=== PATIENT | male | born 1985 | race Caucasian/White ===

== ENCOUNTER 2017-12-16 11:55 | Emergency (ER) | payer SELFPAY ==
[~2017-12-16] VITALS: Ht 172.7 cm; Wt 65.8 kg
[~2017-12-16 11:55] MED LIST: BENZ100C PO; LIDO20SO PO; PRED20TA PO; PSEU120T58 PO; VENTOLIN HFA18 GM INH
[2017-12-16 12:07] VITALS: BP 118/74
[2017-12-16] MEDS ORDERED: PROAIR HFA8.5 GM INH (12:50)
--- NOTE | 2017-12-16 12:51 | PHYS DOC ---
Past Medical History Past Medical History: No Pertinent History Past Surgical History: No Surgical History Additional Information: /2-1ppd Alcohol Use: Occasionally Drug Use: None Adult General Chief Complaint Chief Complaint: Congestion HPI HPI Patient is a 32 year old male who presents to the emergency room with complaints of a productive cough with yellowish brown sputum produced for the last 2 days. He also complains of sinus pressure, nasal congestion, runny nose, and fatigue for the last 3 days. States he's been taking DayQuil and Mucinex haven't really been helping very much. Patient states he is a smoker. He denies any medical history and is not taking any prescription medications. Patient denies any fever, wheezing, shortness of breath, ear pain, sore throat, body aches, headache, nausea, vomiting, diarrhea, or abdominal pain with his symptoms. Review of Systems Review of Systems Constitutional: Denies fever or chills, reports fatigue [] Eyes: Denies change in visual acuity, redness, or eye pain [] HENT: Reports, runny nose, nasal congestion and sinus pressure ; denies sore throat or ear pain Respiratory: Denies wheezing or shortness of breath; reports productive cough with yellow-brown sputum for the last 2 days and painful deep inspiration[] Cardiovascular: Denies chest pain GI: Denies abdominal pain, nausea, vomiting, or diarrhea [] Musculoskeletal: Denies back pain or joint pain [] Integument: Denies rash or skin lesions [] Neurologic: Denies headache, focal weakness or sensory changes [] Allergies Allergies Allergies Coded Allergies Type Severity Reaction Last Updated Verified No Known Drug Allergies 09/09/15 No Physical Exam Physical Exam Constitutional: Well developed, well nourished, no acute distress, non-toxic appearance. [] HENT: Normocephalic, atraumatic, bilateral external ears normal, bilateral TMs normal, cobblestone appearance of posterior pharynx, no tenderness with palpation of maxillary or frontal sinuses, no erythema of posterior pharynx, oropharynx moist, no oral exudates, nose normal. [] Eyes: Normal Neck: Normal range of motion, no tenderness, no lymphadenopathy, supple, no stridor. [] Cardiovascular:Heart rate regular rhythm, no murmur [] Lungs & Thorax: Bilateral breath sounds clear to auscultation [] Skin: Warm, dry, no erythema, no rash. [] Extremities: No cyanosis, Neurologic: Alert and oriented X 3, normal motor function, normal sensory function, no focal deficits noted. [] Psychologic: Affect normal, judgement normal, mood normal. [] Current Patient Data Vital Signs Vital Signs Date Time Temp Pulse Resp B/P (MAP) Pulse Ox O2 Delivery O2 Flow Rate FiO2 12/16/17 12:07 98.3 82 16 118/74 (89) 96 98.3 EKG EKG [] Radiology/Procedures Radiology/Procedures [] Course & Med Decision Making Course & Med Decision Making Pertinent Labs and Imaging studies reviewed. (See chart for details) Patient is a 32-year-old male who presented to the emergency room with complaints of 3 days of sinus pressure and 2 days of a productive cough with yellow-brown sputum produced. Lungs sounds are CTA. Clinically he presents as bronchitis any URI, treated as such. Prescription for albuterol inhaler was written. Patient was encouraged to continue sybw-jag-ocwdtai cold relief medications and Tylenol ibuprofen as needed. Patient verbalized an understanding of home care, medications, follow-up , and return to ED instructions and was in agreement with the plan of care. Staff Physician Addendum: I was working in the ER during the course of this patient's visit. I was available for consultation as needed, but I was not directly involved in the care of this patient. [] Dragon Disclaimer Dragon Disclaimer This electronic medical record was generated, in whole or in part, using a voice recognition dictation system. Departure Departure Impression: Primary Impression: Bronchitis Additional Impression: Upper respiratory infection Disposition: HOME, SELF-CARE Condition: STABLE Referrals: NO PCP (PCP) Patient Instructions: Acute Bronchitis, Rcev-tg-Ojbs, Upper Respiratory Infection, Adult, Bojw-zs-Phay Additional Instructions: Fill prescription(s) and use as directed. Tylenol or ibuprofen prn pain/fever. Increase clear fluids. Avoid triggers such as smoke, fragrance, dust, and pollen. May take OTC cough suppressants as needed. Follow-up with your primary care doctor in the next 1-2 days. Return to the emergency room if symptoms worsen. Scripts Albuterol Sulfate (PROAIR HFA INHALER) 8.5 Gm Hfa.aer.ad 1-2 PUFF INH PRN Q4-6HRS PRN for SHORTNESS OF BREATH, #1 INHALER 0 Refills Prov: VENKAT GARCIA [employer] 12/16/17 Problem Qualifiers Additional Impression: Upper respiratory infection URI type: unspecified URI Qualified Codes: J06.9 - Acute upper respiratory infection, unspecified VENKAT GARC[employer] Dec 16, 2017 12:51 KURT LAU MD Dec 17, 2017 18:57
== END 2017-12-16 12:58 | disposition home or self-care (01) ==
LOC: ER 11:55
DX: J40 Bronchitis, not specified as acute or chronic (principal); F17.200 Nicotine dependence, unspecified, uncomplicated; R53.83 Other fatigue
CPT/HCPCS: 99283

== ENCOUNTER 2018-07-20 08:27 | Emergency (ER) | payer BC ==
[~2018-07-20] VITALS: Ht 172.7 cm; Wt 65.8 kg
[~2018-07-20 08:27] MED LIST changes: +ALBU2.5V8 INH
--- NOTE | 2018-07-20 09:04 | RAD ---
Chest, 2 views, 07/20/2018: HISTORY: Cough, chest pain The heart size is normal. There is a small left basilar opacity abutting the hemidiaphragm suggesting a focus of atelectasis or scarring. This was not evident on the previous study of 09/09/2015. The lungs are otherwise clear. There is no evidence of pleural fluid or pneumothorax. IMPRESSION: Minimal left basilar atelectasis or scarring. Electronically signed by: Ángel Gomez MD (07/20/2018 9:02 AM) [facility]
--- NOTE | 2018-07-20 09:08 | PHYS DOC ---
Past Medical History Past Medical History: No Pertinent History Past Surgical History: No Surgical History Smoking: Cigarettes, 1 Pack Per Day Alcohol Use: Occasionally Drug Use: None Adult General Chief Complaint Chief Complaint: CHEST PAIN [facility] HPI Patient is a 32 year old male who presents with complaining of chest pain and shortness of breath. Patient states he woke up at his usual time at 0755 and had 1 episodes of right sided chest pain as a sharp pain without radiation and rated his pain 8/10. Patient states the pain lasts about 1 minute and was associated with shortness of breath and cough. Patient states he cough for several minutes and had shortness of breath. Patient states the pain was not repeated anymore but he feels shortness of breath and has some cough. Patient complaining of nonproductive cough for couple days and episodes of shortness of breath without fever, dizziness, palpitation, nausea and vomiting. Patient denies history of PE and DVT and recent immobilization. Patient does not have any medical problem or family history of coronary artery disease and smokes one pack a cigarettes a day. Patient was chest pain-free at arrival to ER. Review of Systems Review of Systems Constitutional: Denies fever or chills [] Eyes: Denies change in visual acuity, redness, or eye pain [] HENT: Denies nasal congestion or sore throat [] Respiratory: Reports cough and shortness of breath Cardiovascular: No additional information not addressed in HPI [] GI: Denies abdominal pain, nausea, vomiting, bloody stools or diarrhea [] : Denies dysuria or hematuria [] Musculoskeletal: Denies back pain or joint pain [] Integument: Denies rash or skin lesions [] Neurologic: Denies headache, focal weakness or sensory changes [] Endocrine: Denies polyuria or polydipsia [] All other systems were reviewed and found to be within normal limits, except as documented in this note. Allergies Allergies Allergies Coded Allergies Type Severity Reaction Last Updated Verified No Known Drug Allergies 09/09/15 No Physical Exam Physical Exam Constitutional: Well developed, well nourished, mild distress, non-toxic appearance. [] HENT: Normocephalic, atraumatic, oropharynx moist. [] Eyes: PERRLA, EOMI, conjunctiva normal, no discharge. [] Neck: Normal range of motion, no tenderness, supple, no stridor. [] Cardiovascular:Heart rate regular rhythm, no murmur [] Lungs & Thorax: Bilateral breath sounds clear to auscultation [] Abdomen: Bowel sounds normal, soft, no tenderness, no masses, no pulsatile masses. [] Skin: Warm, dry, no erythema, no rash. [] Back: No tenderness, no CVA tenderness. [] Extremities: No tenderness, no cyanosis, no clubbing, ROM intact, no edema. [] Neurologic: Alert and oriented X 3, normal motor function, normal sensory function, no focal deficits noted. [] Psychologic: Affect anxious, judgement normal, mood normal. [] Current Patient Data Vital Signs Vital Signs Date Time Temp Pulse Resp B/P (MAP) Pulse Ox O2 Delivery O2 Flow Rate FiO2 07/20/18 09:34 68 16 121/70 (87) 97 Room Air 07/20/18 08:42 98.0 98.0 Lab Values Laboratory Tests Test 07/20/18 09:02 White Blood Count 9.7 x10^3/uL (4.0-11.0) Red Blood Count 5.41 x10^6/uL (4.30-5.70) Hemoglobin 16.1 g/dL (13.0-17.5) Hematocrit 47.2 % (39.0-53.0) Mean Corpuscular Volume 87 fL (79-100) Mean Corpuscular Hemoglobin 30 pg (25-35) Mean Corpuscular Hemoglobin Concent 34 g/dL (31-37) Red Cell Distribution Width 14.1 % (11.5-14.5) Platelet Count 186 x10^3/uL (140-400) Neutrophils (%) (Auto) 66 % (31-73) Lymphocytes (%) (Auto) 24 % (24-48) Monocytes (%) (Auto) 8 % (0-9) Eosinophils (%) (Auto) 2 % (0-3) Basophils (%) (Auto) 1 % (0-3) Neutrophils # (Auto) 6.4 x10^3uL (1.8-7.7) Lymphocytes # (Auto) 2.4 x10^3/uL (1.0-4.8) Monocytes # (Auto) 0.8 x10^3/uL (0.0-1.1) Eosinophils # (Auto) 0.2 x10^3/uL (0.0-0.7) Basophils # (Auto) 0.1 x10^3/uL (0.0-0.2) D-Dimer (Melania) < 0.27 ug/mlFEU Sodium Level 142 mmol/L (136-145) Potassium Level 4.2 mmol/L (3.5-5.1) Chloride Level 105 mmol/L (98-107) Carbon Dioxide Level 25 mmol/L (21-32) Anion Gap 12 (6-14) Blood Urea Nitrogen 13 mg/dL (8-26) Creatinine 0.9 mg/dL (0.7-1.3) Estimated GFR (Cockcroft-Gault) 96.6 BUN/Creatinine Ratio 14 (6-20) Glucose Level 104 mg/dL (70-99) H Calcium Level 9.2 mg/dL (8.5-10.1) Magnesium Level 2.1 mg/dL (1.8-2.4) Total Bilirubin 0.3 mg/dL (0.2-1.0) Aspartate Amino Transferase (AST) 19 U/L (15-37) Alanine Aminotransferase (ALT) 45 U/L (16-63) Alkaline Phosphatase 70 U/L (46-116) Creatine Kinase 53 U/L (39-308) Troponin I Quantitative < 0.017 ng/mL (0.000-0.055) Total Protein 6.8 g/dL (6.4-8.2) Albumin 3.8 g/dL (3.4-5.0) Albumin/Globulin Ratio 1.3 (1.0-1.7) Laboratory Tests 07/20/18 09:02 Laboratory Tests 07/20/18 09:02 EKG EKG EKG interpreted by me. EKG at 0826 showed normal sinus rhythm at rate of 73, left kovacs axis, normal SD and QT intervals, no acute ST-T wave abnormalities. Radiology/Procedures Radiology/Procedures [facility] [address] [place] [address] IMAGING REPORT Signed PATIENT: JUICE ORTEGA ACCOUNT: [id number] : 1985 LOCATION: ER AGE: 32 SEX: M EXAM STATUS: REG ER ORD. PHYSICIAN: DEBBIE FISHER MD REASON: chest pain PROCEDURE: CHEST PA & LATERAL Chest, 2 views, 07/20/2018: HISTORY: Cough, chest pain The heart size is normal. There is a small left basilar opacity abutting the hemidiaphragm suggesting a focus of atelectasis or scarring. This was not evident on the previous study of 09/09/2015. The lungs are otherwise clear. There is no evidence of pleural fluid or pneumothorax. IMPRESSION: Minimal left basilar atelectasis or scarring. Electronically signed by: Ángel Gomez MD (07/20/2018 9:02 AM) [facility] DICTATED and SIGNED BY: ÁNGEL GOMEZ MD DATE: 07/20/18901 Course & Med Decision Making Course & Med Decision Making Pertinent Labs and Imaging studies reviewed. (See chart for details) Evaluation of patient in ER showed 32-year-old smoker male patient with complaining of one episode of chest pain this morning that lasted for 1 minute and also complaining of cough and congestion and shortness of breath for couple days. Patient had unremarkable physical exam, EKG, d-dimer ankle because I'm and labs and chest x-ray. She was chest pain-free in ER. Patient informed about the test result and was advised to quit smoking and follow up with his primary care physician. Patient home with diagnose of acute bronchitis and musculoskeletal chest pain. Dragon Disclaimer Dragon Disclaimer This electronic medical record was generated, in whole or in part, using a voice recognition dictation system. Departure Departure Impression: Primary Impression: Acute bronchitis Additional Impressions: Musculoskeletal chest pain Tobacco abuse Tobacco abuse counseling Disposition: 01 HOME, SELF-CARE (at 1011) Condition: IMPROVED Referrals: NO PCP (PCP) Patient Instructions: Acute Bronchitis, Chest Wall Pain, Smokeless Tobacco Use Additional Instructions: Drink plenty of liquids Follow-up with your primary care physician in 3-5 days Return to ER if not getting better Quit smoking Scripts Azithromycin (ZITHROMAX) 250 Mg Tablet 1 PKG PO UD for infection, #1 PKG Prov: DEBBIE FISHER MD 07/20/18 Benzonatate (TESSALON PERLE) 100 Mg Capsule 1 CAP PO TID for cough, #21 CAP Prov: DEBBIE FISHER MD 07/20/18 Naproxen (NAPROSYN) 500 Mg Tablet 1 TAB PO BID for pain, #20 TAB Prov: DEBBIE FISHER MD 07/20/18 Problem Qualifiers DEBBIE FISHER MD Jul 20, 2018 09:08
[2018-07-20 09:13] LABS: BASO # 0.1 x10^3/uL (0.0-0.2); BASO % 1 % (0-3); EOS # 0.2 x10^3/uL (0.0-0.7); EOS % 2 % (0-3); HEMATOCRIT 47.2 % (39.0-53.0); HEMOGLOBIN 16.1 g/dL (13.0-17.5); LYMPH # 2.4 x10^3/uL (1.0-4.8); LYMPH % 24 % (24-48); MEAN CORPUSCULAR HEMOGLOBIN 30 pg (25-35); MEAN CORPUSCULAR HGB CONC 34 g/dL (31-37); MEAN CORPUSCULAR VOLUME 87 fL (79-100); MONO # 0.8 x10^3/uL (0.0-1.1); MONO % 8 % (0-9); NEUT # 6.4 x10^3uL (1.8-7.7); NEUT % 66 % (31-73); PLATELET COUNT 186 x10^3/uL (140-400); RED BLOOD COUNT 5.41 x10^6/uL (4.30-5.70); RED CELL DISTRIBUTION WIDTH 14.1 % (11.5-14.5); WHITE BLOOD COUNT 9.7 x10^3/uL (4.0-11.0)
[2018-07-20 09:26] LABS: CALCIUM 9.2 mg/dL (8.5-10.1); CREATININE 0.9 mg/dL (0.7-1.3); GFR 96.6; POTASSIUM 4.2 mmol/L (3.5-5.1)
[2018-07-20 09:29] LABS: ALBUMIN 3.8 g/dL (3.4-5.0); ALBUMIN/GLOBULIN RATIO 1.3 (1.0-1.7); MAGNESIUM 2.1 mg/dL (1.8-2.4); TOTAL BILIRUBIN 0.3 mg/dL (0.2-1.0); TOTAL PROTEIN 6.8 g/dL (6.4-8.2)
[2018-07-20 09:34] VITALS: BP 121/70
--- NOTE | 2018-07-20 09:36 | EKG ---
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
[2018-07-20] MEDS ORDERED: BENZ100C PO (10:15)
[2018-07-20] MEDS ORDERED: AZIT250T PO (10:15)
[2018-07-20] MEDS ORDERED: NAPR-683 PO (10:15)
== END 2018-07-20 10:23 | disposition home or self-care (01) ==
LOC: ER 08:27
DX: J20.9 Acute bronchitis, unspecified (principal); R07.89 Other chest pain; F17.210 Nicotine dependence, cigarettes, uncomplicated; Z71.6 Tobacco abuse counseling
CPT/HCPCS: 36415; 71046; 80053; 82550; 83735; 84484; 85025; 85379; 93005; 99284-25

== ENCOUNTER 2018-09-05 18:29 | Emergency (ER) | payer BC ==
[~2018-09-05] VITALS: Ht 172.7 cm; Wt 78.9 kg
[~2018-09-05 18:29] MED LIST changes: +AZIT250T PO; +NAPR-683 PO
[2018-09-05 18:34] VITALS: BP 134/69
[2018-09-05] MEDS ORDERED: PRED20TA PO (18:51)
[2018-09-05] MEDS ORDERED: AZIT1PAC9 PO (18:51)
--- NOTE | 2018-09-05 18:52 | PHYS DOC ---
Past Medical History Past Medical History: No Pertinent History (CLARICE BIGGS) Past Surgical History: No Surgical History (CLARICE BIGGS) Alcohol Use: Occasionally Drug Use: None (CLARICE BIGGS) Adult General Chief Complaint Chief Complaint: Congestion HPI HPI Patient is a 32 year old M who presents with cough, congestion and sore throat. He states he has been working out in the rain and thinks that is making him more ill. Pt's girlfriend has also been ill but is starting to feel much better. (CLARICE BIGGS) Review of Systems Review of Systems Constitutional: Denies fever or chills HENT: Reports nasal congestion and sore throat. Respiratory: Denies shortness of breath. Reports cough. Cardiovascular: Denies chest pain. GI: Denies abdominal pain, nausea, vomiting, bloody stools or diarrhea Musculoskeletal: Denies back pain or joint pain Integument: Denies rash or skin lesions Neurologic: Denies headache, focal weakness or sensory changes All other systems were reviewed and found to be within normal limits, except as documented in this note. (CLARICE BIGGS) Allergies Allergies Allergies Coded Allergies Type Severity Reaction Last Updated Verified No Known Drug Allergies 09/09/15 No (KURT LAU MD) Physical Exam Physical Exam Constitutional: Well developed, well nourished, no acute distress, non-toxic appearance. HENT: Normocephalic, atraumatic, bilateral external ears normal. Oropharynx erythema, nasal drainage clear. Neck: Normal range of motion, no tenderness, supple, no stridor. Cardiovascular:Heart rate regular rhythm, no murmur Lungs & Thorax: Scattered wheezing B Abdomen: Bowel sounds normal, soft, no tenderness, no masses, no pulsatile masses. Skin: Warm, dry, no erythema, no rash. Back: No tenderness, no CVA tenderness. Extremities: No tenderness, no cyanosis, no clubbing, ROM intact, no edema. Neurologic: Alert and oriented X 3, normal motor function, normal sensory function, no focal deficits noted. Psychologic: Affect normal, judgement normal, mood normal. (CLARICE BIGGS) Current Patient Data Vital Signs Vital Signs Date Time Temp Pulse Resp B/P (MAP) Pulse Ox O2 Delivery O2 Flow Rate FiO2 09/05/18 18:34 99.6 101 18 134/69 (90) 97 Room Air 99.6 (KURT LAU MD) EKG EKG [] (CLARICE BIGGS) Radiology/Procedures Radiology/Procedures [] (CLARICE BIGGS) Course & Med Decision Making Course & Med Decision Making Pertinent Labs and Imaging studies reviewed. (See chart for details) Will treat for bronchitis and sinusitis and recommend OTC mucinex and flonase. Pt to f/u with PCP and return if symptoms worsen. (CLARICE BIGGS) Course & Med Decision Making Staff Physician Addendum: I was working in the ER during the course of this patient's visit. I was available for consultation as needed, but I was not directly involved in the care of this patient. (KURT LAU MD) Dragon Disclaimer Dragon Disclaimer This electronic medical record was generated, in whole or in part, using a voice recognition dictation system. (CLARICE BIGGS) Departure Departure Impression: Primary Impression: Bronchitis Additional Impression: Sinusitis Disposition: 01 HOME, SELF-CARE Condition: STABLE Referrals: NO PCP (PCP) Patient Instructions: Acute Bronchitis, Onxy-np-Uobj, Sinusitis, Xoee-ta-Noav Additional Instructions: Push fluids and rest. Over the counter products such as Mucinex or Flonase can be helpful, generic brand is fine. Scripts Prednisone (PREDNISONE) 20 Mg Tablet 1 TAB PO BID, #10 TAB Prov: CLARICE BIGGS 09/05/18 Azithromycin (AZITHROMYCIN PACKET) 1 Gm Packet 1 PACKET PO ONCE, #1 PACKET Prov: CLARICE BIGGS 09/05/18 Problem Qualifiers CLARICE BIGGS September 05, 2018 18:52 KURT LAU MD Sep 17, 2018 18:36
== END 2018-09-05 19:00 | disposition home or self-care (01) ==
LOC: ER 18:29
DX: J40 Bronchitis, not specified as acute or chronic (principal); J32.9 Chronic sinusitis, unspecified
CPT/HCPCS: 99283

== ENCOUNTER 2020-05-09 16:36 | Emergency (ER) | payer BC ==
[~2020-05-09] VITALS: Ht 172.7 cm; Wt 65.9 kg
[~2020-05-09 16:36] MED LIST changes: +AZIT1PAC9 PO
[2020-05-09 16:50] VITALS: BP 148/82
[2020-05-09 17:41] LABS: INFLUENZA A PATIENT NEGATIVE (NEGATIVE); INFLUENZA B PATIENT NEGATIVE (NEGATIVE)
--- NOTE | 2020-05-09 17:41 | RAD ---
INDICATION: Reason: cough, congestion / Spl. Instructions: / History: COMPARISON: July 20, 2018 FINDINGS: Single view of chest obtained. No focal airspace consolidation. Cardiomediastinal contour unremarkable. No acute osseous abnormality. IMPRESSION: * No focal airspace consolidation or edema. Electronically signed by: Ethan Alberts MD (05/09/2020 5:39 PM) [id number]
[2020-05-09] MEDS ORDERED: ALBU2.5V8 IH (18:55)
[2020-05-09] MEDS ORDERED: METH4TAB2 PO (18:55)
[2020-05-09] MEDS ORDERED: BENZ100C PO (18:55)
--- NOTE | 2020-05-09 18:55 | ED.ADGEN ---
Past Medical History Past Medical History: No Pertinent History Past Surgical History: No Surgical History Smoking Status: Current Every Day Smoker Additional Information: 2/PPD Alcohol Use: Occasionally Drug Use: None General Adult EDM: Chief Complaint: COUGH HPI: HPI: Patient is a 34 year old male who presents emergency department with complaints of a productive cough with white sputum, nasal congestion and postnasal drainage for the last 3 days. He denies any fever, nausea, vomiting, abdominal pain, chest pain, shortness of breath, body aches, fatigue, rash, sore throat, headache, or loss of taste/smell. The patient denies any known COVID-19 exposure. He states that at times he feels wheezy but currently denies any wheezing. He reports that he is a 2 pack/day smoker and that he typically gets bronchitis around this time of year. Patient states he feels like he has bronchitis. He currently denies any pain. Review of Systems: Review of Systems: Complete ROS is negative unless otherwise noted in HPI. Allergies: Allergies: Allergies Coded Allergies Type Severity Reaction Last Updated Verified No Known Drug Allergies 09/09/15 No Physical Exam: PE: See Above Constitutional: Well developed, well nourished, no acute distress, non-toxic appearance. [] HENT: Normocephalic, atraumatic, bilateral external ears normal, nose normal. [] Eyes: PERRLA, EOMI, conjunctiva normal, no discharge. [] Neck: Normal range of motion, no stridor. [] Cardiovascular:Heart rate regular rhythm Lungs & Thorax: Respirations even and unlabored, no retractions, no respiratory distress Skin: Warm, dry, no erythema, no rash. [] Extremities: No cyanosis, ROM intact, no edema. [] Neurologic: Alert and oriented X 3, no focal deficits noted. [] Psychologic: Affect normal, judgement normal, mood normal. [] Current Patient Data: Labs: Laboratory Tests Test 05/09/20 17:00 Influenza Type A Antigen Negative (NEGATIVE) Influenza Type B Antigen Negative (NEGATIVE) Vital Signs: Vital Signs Date Time Temp Pulse Resp B/P (MAP) Pulse Ox O2 Delivery O2 Flow Rate FiO2 05/09/20 16:50 98.8 94 20 148/82 (104) 97 Room Air 98.8 EKG: EKG: [] Heart Score: Risk Factors: Risk Factors: DM, Current or recent (<one month) smoker, HTN, HLP, family history of CAD, obesity. Risk Scores: Score 0 - 3: 2.5% MACE over next 6 weeks - Discharge Home Score 4 - 6: 20.3% MACE over next 6 weeks - Admit for Clinical Observation Score 7 - 10: 72.7% MACE over next 6 weeks - Early Invasive Strategies Radiology/Procedures: Radiology/Procedures: PROCEDURE: CHEST AP ONLY INDICATION: Reason: cough, congestion / Spl. Instructions: / History: COMPARISON: July 20, 2018 FINDINGS: Single view of chest obtained. No focal airspace consolidation. Cardiomediastinal contour unremarkable. No acute osseous abnormality. IMPRESSION: * No focal airspace consolidation or edema. Electronically signed by: Ethan Alberts MD (05/09/2020 5:39 PM) DESKTOP- [id number][] Course & Med Decision Making: Course & Med Decision Making Pertinent Labs and Imaging studies reviewed. (See chart for details) COVID-19 CRITERIA: The patient was evaluated during the global COVID-19 pandemic, and that diagnosis was suspected/considered upon their initial presentation. Their evaluation, treatment and testing was consistent with current guidelines for patients who present with complaints or symptoms that may be related to COVID-19. [] Dragon Disclaimer: Dragon Disclaimer: This electronic medical record was generated, in whole or in part, using a voice recognition dictation system. Departure Departure Impression: Primary Impression: Person under investigation for COVID-19 Additional Impression: Cough Disposition: 01 DC HOME SELF CARE/HOMELESS Condition: STABLE Referrals: NO PCP (PCP) Patient Instructions: Acute Bronchitis, [id number] Additional Instructions: Fill prescription(s) and use as directed. Alternate Tylenol or ibuprofen as needed for pain/fever. Increase clear fluids. Avoid airway triggers such as smoke, fragrance, dust, and pollen. May take [id number] cough suppressants as needed. Follow-up with your primary care doctor i in 1 to 2 days return to the ER if symptoms worsen or fever develops. Please follow the following quarantine instructions: You have been tested for or diagnosed with COVID-19. It is an infection caused by a new type of coronavirus. COVID-19 will cause cold-like or mild flu symptoms in most. It can cause more severe symptoms like problems breathing in some. There is no treatment for COVID-19. The body will clear the infection over time. Self-care will help to ease discomfort. Steps to Take: Self-Care Rest as needed. Healthy habits may help you feel better. Steps include: Choose healthy foods including fruits and vegetables. Drink water throughout the day. Get plenty of sleep each night. If you smoke, try to quit. It may ease breathing. Avoid alcohol. Keep Others Healthy The virus can spread to others. Droplets are released every time you sneeze or cough. The droplets can get into the mouth, nose, or eyes of people near you and lead to infection. To lower the chances of spreading COVID-19 to others: Stay at home until your doctor has said it is safe to leave. If you tested positive this will mean staying isolated until both of the following are true: At least 7 days have passed since the start of illness. You are free of fever for at least 72 hours without the use of medicine. During this time: - Avoid public areas, events, or transportation. Do not return to work or school until your doctor has said it is safe to do so. - Call ahead if you need to go to a medical center. Let them know you may have COVID-19. It will help them guide you where to go. They may also ask you to wear a facemask when you come to the office. - If you call for emergency medical services, let them know you may have COVID- 19. While at home: - Try to avoid close contact with others. Stay about 6 feet away. - If possible, spend most of your time in a separate room from others. - Use a face mask if you will be in close contact with others such as sharing a room or vehicle. - Have someone wipe down common surfaces in the home. Use household resistor winder every day on areas like doorknobs, counters, or sinks. - Cough or sneeze into a tissue. Throw the tissue away right after use. If a tissue is not available, cough or sneeze into your elbow. - Wash your hands often. Wash them after sneezing or coughing. Use soap and water and wash for at least 20 seconds. Alcohol based hand boat cleaner can be used if soap and water is not available. - Do not prepare food for others. Avoid sharing personal items like forks, spoons, or toothbrushes. - Avoid close contact with pets while you are sick. There is no evidence of the virus passing to pets. This is a safety step until more is known about this virus. Isolation can be frustrating. Social interaction can help. Keep in touch with friends and family through phone and tech options. You can still interact with others in your home, just keep a safe distance of about 6 feet. Follow-up: Your doctors office will check in with you to see if there are any changes in your health. You may be asked to keep track of symptoms to share with them. They will also let you know when you are clear to be in public again. Problems to Look Out For: Contact your doctor if your recovery is not going as you expect. Get emergency care if you have problems such as: - Trouble breathing - Nonstop chest pain or pressure - Changes in awareness, confusion, or problems waking - Lips or face have bluish color - Worsening of symptoms If you think you have an emergency, call for emergency medical services right away. As taken from [facility] Albuterol Sulfate (Proair Hfa) 8.5 Gm Hfa.aer.ad 2 PUFF IH PRN Q4-6HRS PRN for wheezing for 21 Days, #1 INHALER 0 Refills Prov: VENKAT GARCIA [employer] 05/09/20 Methylprednisolone (MEDROL) 4 Mg Tab.ds.pk 1 PKG PO UD for 6 Days, #1 PKG 0 Refills Prov: VENKAT GARCIA [employer] 05/09/20 Benzonatate (TESSALON PERLE) 100 Mg Capsule 1 CAP PO TID PRN for COUGH for 7 Days, #21 CAP 0 Refills Prov: VENKAT GARCIA [employer] 05/09/20 COVID-19 Assessment: COVID-19 Patient Risks: Age 65 or older: No Sign of co-morbidity: No Exp to person + for COVID: No Exp to PUI: No Travel from affected area: No Lower respiratory symptoms: Yes Fever: No PPE Use: Full PPE with N95 mask or PAPR: Yes Problem Qualifiers VENKAT GARCIA APRN May 09, 2020 18:55
== END 2020-05-09 19:26 | disposition home or self-care (01) ==
LOC: ER 16:36
DX: R05 Cough (principal); Z20.822 Contact with and (suspected) exposure to COVID-19; R09.81 Nasal congestion; R06.2 Wheezing; F17.200 Nicotine dependence, unspecified, uncomplicated
CPT/HCPCS: 71045; 87804; 99284; C9803; U0003